=== PATIENT | female | born 2000 | race Caucasian/White ===

== ENCOUNTER 2021-04-12 12:14 | Emergency (ER) | payer OTHER ==
[~2021-04-12] VITALS: Ht 167.6 cm; Wt 113.4 kg
[2021-04-12] MEDS ORDERED: FLUVOXAMINE MAL50 MG PO (12:31)
[2021-04-12] MEDS ORDERED: GLUCOPHAGE500 MG PO (12:31)
[2021-04-12] MEDS ORDERED: LOESTRIN1 EAC1 PO (12:31)
[2021-04-12] MEDS ORDERED: ELIQUIS5 MG PO ×2 (15:12→15:13)
== END 2021-04-12 15:43 | disposition home or self-care (01) ==
LOC: ED 12:14
DX: I82.411 Acute embolism and thrombosis of right femoral vein (principal)
CPT/HCPCS: 85025; 85610; 85730; 93971; 99284-25